=== PATIENT | female | born 1985 | race Two or more races ===

== ENCOUNTER 2016-04-15 01:43 | Emergency (ER) | payer MEDICAID ==
[~2016-04-15] VITALS: Ht 154.9 cm; Wt 76.2 kg
[~2016-04-15 01:43] MED LIST: DENIES TAKING MEDS
[2016-04-15] MEDS ORDERED: methylPREDNISolone SOD SUCC 125 MG/2 ML VL IV ONE (03:15)
[2016-04-15] MEDS ORDERED: diphenhdrAMINE HCL 50 MG/1 ML VL IV ONE (03:15)
[2016-04-15] MEDS ORDERED: cefTRIAXone 1GM/50ML D5W 50 ML IV ONE (03:15)
[2016-04-15] MEDS ORDERED: SODIUM CHLORIDE 0.9% 1,000 ML IV ONE (03:15)
[2016-04-15 04:54] VITALS: BP 138/90
== END 2016-04-15 05:19 | disposition home or self-care (01) ==
LOC: ER 01:46
DX: J02.9 Acute pharyngitis, unspecified (principal); N39.0 Urinary tract infection, site not specified; T78.40XA Allergy, unspecified, initial encounter; E86.0 Dehydration; M19.90 Unspecified osteoarthritis, unspecified site; R51 Headache; F15.10 Other stimulant abuse, uncomplicated; F17.210 Nicotine dependence, cigarettes, uncomplicated; Z88.1 Allergy status to other antibiotic agents
CPT/HCPCS: 81025; 96365; 96375; 99284; J0696; J1200; J2930; J7030

== ENCOUNTER 2016-12-01 06:52 | Emergency (ER) | payer MEDICAID ==
[~2016-12-01] VITALS: Ht 154.9 cm; Wt 74.8 kg
[2016-12-01 07:20] VITALS: BP 140/90
[2016-12-01] MEDS ORDERED: traMADol HCL 50 MG TAB PO ONE (08:00)
== END 2016-12-01 08:17 | disposition home or self-care (01) ==
LOC: ER 06:52
DX: J02.9 Acute pharyngitis, unspecified (principal); M19.90 Unspecified osteoarthritis, unspecified site; F17.210 Nicotine dependence, cigarettes, uncomplicated; Z88.8 Allergy status to other drugs, medicaments and biological substances

== ENCOUNTER 2017-05-13 03:54 | Emergency (ER) | payer MEDICAID ==
[~2017-05-13] VITALS: Ht 154.9 cm; Wt 77.1 kg
[2017-05-13 04:20] VITALS: BP 144/95
[2017-05-13 05:09] LABS: Urine Bacteria NONE SEEN /hpf (None Seen); Urine Blood 2+ /uL (Negative); Urine Mucus FEW (None Seen); Urine Specific Gravity 1.025 (1.001-1.035); Urine WBC 46 /hpf (0 - 5)
== END 2017-05-13 08:36 | disposition left against medical advice (07) ==
LOC: ER 03:54
DX: R31.9 Hematuria, unspecified (principal); Z53.21 Procedure and treatment not carried out due to patient leaving prior to being seen by health care provider
CPT/HCPCS: 81001; 81025

== ENCOUNTER 2017-05-25 18:44 | Emergency (ER) | payer MEDICAID ==
[~2017-05-25] VITALS: Ht 154.9 cm; Wt 74.8 kg
[2017-05-25 18:50] VITALS: BP 118/70
== END 2017-05-25 23:27 | disposition left against medical advice (07) ==
LOC: ER 18:44
DX: M79.89 Other specified soft tissue disorders (principal); Z53.21 Procedure and treatment not carried out due to patient leaving prior to being seen by health care provider

== ENCOUNTER 2017-05-27 04:59 | Inpatient (IN) | payer MEDICAID ==
[~2017-05-27] VITALS: Ht 154.9 cm; Wt 87.3 kg
[2017-05-27 06:28] LABS: Basophils # (auto) 0.1 uL; Basophils % (auto) 0.9 % (0.0-2.0); Eosinophils # (auto) 0.3 uL; Eosinophils % (auto) 3.7 % (0.0-7.0); Hematocrit 39.4 % (36.0-46.0); Hemoglobin 12.5 g/dL (12.2-16.2); Lymphocytes # (auto) 1.9 uL; Lymphocytes % (auto) 26.3 % (10.0-50.0); Mean Corpuscular Hgb Conc. 31.8 g/dL (32.0-36.0); Monocytes # (auto) 0.6 uL; Monocytes % (auto) 8.9 % (0.0-12.0); Neutrophils # (auto) 4.4 uL; Neutrophils % (auto) 60.2 % (37.0-80.0); Nucleated Red Blood Cells % 0.1 %; Platelet Count (auto) 333 10^3/uL (140-450); Red Blood Cells 4.47 10^6/uL (4.0-5.20); Red Cell Distribution Width 15.4 % (11.8-14.3); White Blood Cell 7.2 10^3/uL (4.4-10.8)
[2017-05-27 06:49] LABS: Albumin 3.4 g/dL (3.4-5.0); BUN/Creatinine Ratio 21.1; Calcium 8.3 mg/dL (8.5-10.1)
[2017-05-27 06:52] LABS: Bilirubin, Total 0.3 mg/dL (0.2-1.0); Total Protein 7.1 g/dL (6.4-8.2)
[2017-05-27] MEDS ORDERED: SODIUM CHLORIDE 0.9% 1,000 ML IV ONE (06:58)
[2017-05-27] MEDS ORDERED: CLINDAMYCIN 600MG IV 50 ML IV ONE (07:00)
[2017-05-27 08:11] LABS: Urine Bacteria FEW /hpf (None Seen); Urine Blood Negative /uL (Negative); Urine Mucus FEW (None Seen); Urine Specific Gravity 1.025 (1.001-1.035); Urine WBC 14 /hpf (0 - 5)
[2017-05-27] MEDS ORDERED: cefTRIAXone 1GM/10ml IVPUSH 10 ML IV ONE (10:00)
[2017-05-27] MEDS ORDERED: ACETAMINOPHEN 325 MG TAB PO PRN (10:30)
[2017-05-27] MEDS ORDERED: ONDANSETRON HCL 4 MG/2 ML VIAL IV PRN (10:30)
[2017-05-27] MEDS ORDERED: HYDROcodone-ACET 5/325MG TAB PO PRN (10:30)
[2017-05-27] MEDS ORDERED: MORPHINE SULFATE 8mg/ml INJ SDV IV PRN (10:30)
[2017-05-27] MEDS ORDERED: DOCUSATE SOD 100 MG CAP PO PRN (10:30)
[2017-05-27] MEDS ORDERED: TEMAZEPAM 15 MG CAP PO PRN (10:30)
[2017-05-27] MEDS ORDERED: MULTIPLE VITAMIN TAB PO ONE (10:45)
[2017-05-27] MEDS ORDERED: ZINC SULFATE 220 MG CAP PO ONE (10:45)
[2017-05-27] MEDS ORDERED: ASCORBIC ACID 500 MG TAB PO ONE (10:45)
[2017-05-27 10:52] LABS: Alcohol, Urine < 3.0 mg/dL (0-5); Amphetamine Screen, Urine POSITIVE (NEGATIVE); Barbiturate Scree,Urine NEGATIVE (NEGATIVE); Benzodiazephine Screen, Urine NEGATIVE (NEGATIVE); Cannabinoid Screen, Urine NEGATIVE (NEGATIVE); Cocaine Screen, Urine NEGATIVE (NEGATIVE); Opiate Scree,Urine NEGATIVE (NEGATIVE); Phencyclidine Screen, Urine NEGATIVE (NEGATIVE)
[2017-05-27 13:00] VITALS: BP 127/81
[2017-05-27 14:36] VITALS: BP 127/81
[2017-05-27 16:43] VITALS: BP 139/78
[2017-05-27] MEDS: CLINDAMYCIN 300MG IV 50 ML IV SCH ×2 (17:12→21:27)
[2017-05-27] MEDS: SODIUM CHLOR 0.9% PF (SALINE LOCK) 10ML VIAL/SYR IV SCH ×2 (17:12→21:26)
[2017-05-27] MEDS: ASCORBIC ACID 500 MG TAB PO SCH (21:26)
[2017-05-27 22:00] VITALS: BP 133/76
[2017-05-28 05:00] VITALS: BP 136/78
[2017-05-28] MEDS: CLINDAMYCIN 300MG IV 50 ML IV SCH (05:31)
[2017-05-28] MEDS: SODIUM CHLOR 0.9% PF (SALINE LOCK) 10ML VIAL/SYR IV SCH ×3 (05:32→22:03)
[2017-05-28 07:42] LABS: Albumin 3.1 g/dL (3.4-5.0); BUN/Creatinine Ratio 11.6; Bilirubin, Total 0.3 mg/dL (0.2-1.0); Calcium 8.1 mg/dL (8.5-10.1); Potassium 4.1 mmol/L (3.5-5.1); Total Protein 6.7 g/dL (6.4-8.2)
[2017-05-28 08:02] LABS: Basophils # (auto) 0 uL; Basophils % (auto) 0.7 % (0.0-2.0); Eosinophils # (auto) 0.3 uL; Eosinophils % (auto) 4.8 % (0.0-7.0); Hematocrit 38.2 % (36.0-46.0); Hemoglobin 12.4 g/dL (12.2-16.2); Lymphocytes # (auto) 2.1 uL; Lymphocytes % (auto) 39.8 % (10.0-50.0); Mean Corpuscular Hemoglobin 28.5 pg (28.0-32.0); Mean Corpuscular Hgb Conc. 32.5 g/dL (32.0-36.0); Mean Corpuscular Volume 87.6 fL (80.0-100.0); Monocytes # (auto) 0.6 uL; Monocytes % (auto) 10.6 % (0.0-12.0); Neutrophils # (auto) 2.3 uL; Neutrophils % (auto) 44.1 % (37.0-80.0); Nucleated Red Blood Cells % 0.1 %; Platelet Count (auto) 320 10^3/uL (140-450); Red Blood Cells 4.36 10^6/uL (4.0-5.20); Red Cell Distribution Width 15.2 % (11.8-14.3); White Blood Cell 5.3 10^3/uL (4.4-10.8)
[2017-05-28 09:00] VITALS: BP 121/78
[2017-05-28] MEDS ORDERED: ZINC SULFATE 220 MG CAP PO SCH (10:00)
[2017-05-28] MEDS ORDERED: MULTIPLE VITAMIN TAB PO SCH (10:00)
[2017-05-28] MEDS: cefTRIAXone 1GM/10ml IVPUSH 10 ML IV SCH (10:09)
[2017-05-28] MEDS: ASCORBIC ACID 500 MG TAB PO SCH (10:09)
[2017-05-28] MEDS ORDERED: VANCOMYCIN PER PHARMACY 0 MG IV SCH (12:45)
[2017-05-28 13:00] VITALS: BP 132/89
[2017-05-28] MEDS ORDERED: VANCOMYCIN 750 MG in D5W 5% 250 ML IV SCH (13:00)
[2017-05-28] MEDS: VANCOMYCIN 750 MG in SODIUM CHL 0.9% 250 ML IV SCH (13:03)
[2017-05-28 17:33] VITALS: BP 153/90
[2017-05-28 22:00] VITALS: BP 147/85
[2017-05-28] MEDS ORDERED: VANCOMYCIN 1GM/250ML 250 ML IV SCH (22:00)
[2017-05-29] MEDS: VANCOMYCIN 750 MG in SODIUM CHL 0.9% 250 ML IV SCH ×2 (01:01→12:25)
[2017-05-29 05:11] VITALS: BP 131/86
[2017-05-29] MEDS: SODIUM CHLOR 0.9% PF (SALINE LOCK) 10ML VIAL/SYR IV SCH ×2 (05:54→12:24)
[2017-05-29 07:29] LABS: BUN/Creatinine Ratio 14.9; Calcium 7.9 mg/dL (8.5-10.1)
[2017-05-29] MEDS: cefTRIAXone 1GM/10ml IVPUSH 10 ML IV SCH (08:53)
[2017-05-29 09:00] VITALS: BP 121/78
[2017-05-29 12:30] VITALS: BP 122/74
[2017-05-29] MEDS ORDERED: IBUP800T24 PO (12:50)
[2017-05-29] MEDS ORDERED: DOXY-216 PO (12:50)
[2017-05-29] MEDS ORDERED: CEPH-37 PO (12:50)
[2017-05-29 16:57] VITALS: BP 148/85
== END 2017-05-29 17:48 | disposition home or self-care (01) | DRG 383 ==
LOC: ER 04:59 → OVERFLOW 05:00 → CENTRAL 13:05
PROVIDERS: ADMIT Internal Medicine; ATTEND Hospitalist
DX: L03.115 Cellulitis of right lower limb (principal); E83.51 Hypocalcemia; N39.0 Urinary tract infection, site not specified; F17.210 Nicotine dependence, cigarettes, uncomplicated; I34.1 Nonrheumatic mitral (valve) prolapse; M06.9 Rheumatoid arthritis, unspecified; F15.10 Other stimulant abuse, uncomplicated; T43.625A Adverse effect of amphetamines, initial encounter; F32.9 Major depressive disorder, single episode, unspecified; M19.90 Unspecified osteoarthritis, unspecified site; Z88.8 Allergy status to other drugs, medicaments and biological substances; Z82.49 Family history of ischemic heart disease and other diseases of the circulatory system; Z82.61 Family history of arthritis; Z71.51 Drug abuse counseling and surveillance of drug abuser; Y92.89 Other specified places as the place of occurrence of the external cause
CPT/HCPCS: 36415; 73630; 80048; 80053; 80307; 81001; 81025; 83605; 85025; 85652; 87040; 87086; 93306; 94761; 96361; 96365; 96375; J3490; J7060

== ENCOUNTER 2017-11-09 22:23 | Inpatient (IN) | payer MEDICAID ==
[~2017-11-09] VITALS: Ht 154.9 cm; Wt 79.0 kg
[~2017-11-09 22:23] MED LIST changes: +CEPH-37 PO; +DOXY-216 PO; +IBUP800T24 PO
[2017-11-10 00:25] LABS: Basophils # (auto) 0 uL; Basophils % (auto) 0.4 % (0.0-2.0); Eosinophils # (auto) 0.5 uL; Eosinophils % (auto) 4.5 % (0.0-7.0); Hematocrit 43.6 % (36.0-46.0); Hemoglobin 14.5 g/dL (12.2-16.2); Lymphocytes # (auto) 2.1 uL; Lymphocytes % (auto) 20.2 % (10.0-50.0); Mean Corpuscular Hemoglobin 30.9 pg (28.0-32.0); Mean Corpuscular Hgb Conc. 33.2 g/dL (32.0-36.0); Mean Corpuscular Volume 93.3 fL (80.0-100.0); Monocytes # (auto) 0.9 uL; Monocytes % (auto) 8.9 % (0.0-12.0); Nucleated Red Blood Cells % 0.1 %; Platelet Count (auto) 338 10^3/uL (140-450); Red Blood Cells 4.67 10^6/uL (4.0-5.20); Red Cell Distribution Width 13.8 % (11.8-14.3); White Blood Cell 10.5 10^3/uL (4.4-10.8)
[2017-11-10 00:36] LABS: Albumin 3.7 g/dL (3.4-5.0); BUN/Creatinine Ratio 11.1; Calcium 8.1 mg/dL (8.5-10.1); Potassium 3.7 mmol/L (3.5-5.1)
[2017-11-10 00:38] LABS: Lactic Acid w/Reflex 2.4 mmol/L (0.4-2.0)
[2017-11-10 00:39] LABS: Bilirubin, Total 0.4 mg/dL (0.2-1.0); Total Protein 7.8 g/dL (6.4-8.2)
[2017-11-10] MEDS ORDERED: cefTRIAXone 1GM/10ml IVPUSH 10 ML IV ONE (01:45)
[2017-11-10] MEDS ORDERED: VANCOMYCIN 1GM/250ML 250 ML IV ONE (01:45)
[2017-11-10] MEDS ORDERED: ONDANSETRON HCL 4 MG/2 ML VIAL IV PRN (04:30)
[2017-11-10] MEDS ORDERED: HYDROcodone-ACET 5/325MG TAB PO PRN (04:30)
[2017-11-10] MEDS ORDERED: MORPHINE SULFATE 4 MG/ML SYR/VIAL IV PRN (04:30)
[2017-11-10] MEDS ORDERED: ACETAMINOPHEN 500 MG TAB PO PRN (04:30)
[2017-11-10] MEDS: SODIUM CHLORIDE 0.9% 1,000 ML IV SCH ×2 (04:38→17:50)
[2017-11-10 05:32] VITALS: BP 153/99
[2017-11-10 07:07] LABS: Basophils # (auto) 0.1 uL; Basophils % (auto) 0.9 % (0.0-2.0); Eosinophils # (auto) 0.5 uL; Eosinophils % (auto) 5.2 % (0.0-7.0); Hematocrit 41.6 % (36.0-46.0); Hemoglobin 13.9 g/dL (12.2-16.2); Lymphocytes # (auto) 1.8 uL; Lymphocytes % (auto) 20.1 % (10.0-50.0); Mean Corpuscular Hemoglobin 31.2 pg (28.0-32.0); Mean Corpuscular Hgb Conc. 33.4 g/dL (32.0-36.0); Mean Corpuscular Volume 93.4 fL (80.0-100.0); Monocytes # (auto) 0.7 uL; Monocytes % (auto) 7.8 % (0.0-12.0); Platelet Count (auto) 277 10^3/uL (140-450); Red Blood Cells 4.45 10^6/uL (4.0-5.20); Red Cell Distribution Width 13.6 % (11.8-14.3)
[2017-11-10 07:28] LABS: BUN/Creatinine Ratio 10.4; Calcium 8.1 mg/dL (8.5-10.1); Potassium 3.5 mmol/L (3.5-5.1)
[2017-11-10 07:49] VITALS: BP 137/87
[2017-11-10 12:11] VITALS: BP 129/78
[2017-11-10] MEDS ORDERED: VANCOMYCIN PER PHARMACY 0 MG IV SCH (13:00)
[2017-11-10] MEDS ORDERED: cloNIDine HCL 0.1 MG TAB PO PRN (13:00)
[2017-11-10] MEDS ORDERED: VANCOMYCIN 1GM/250ML 250 ML IV SCH (14:00)
[2017-11-10 17:10] VITALS: BP 120/69
[2017-11-10] MEDS ORDERED: cefTRIAXone 1GM/10ml IVPUSH 10 ML IV SCH (22:00)
[2017-11-11] MEDS ORDERED: cefTRIAXone 1GM/10ml IVPUSH 10 ML IV SCH (09:00)
== END 2017-11-10 21:00 | disposition left against medical advice (07) | DRG 383 ==
LOC: ER 22:25 → OVERFLOW 22:26 → CENTRAL 11-10 05:05
PROVIDERS: ADMIT Nurse Practitioner Family; ATTEND Hospitalist
DX: L03.116 Cellulitis of left lower limb (principal); F15.10 Other stimulant abuse, uncomplicated; F17.210 Nicotine dependence, cigarettes, uncomplicated; F32.9 Major depressive disorder, single episode, unspecified; Z53.21 Procedure and treatment not carried out due to patient leaving prior to being seen by health care provider; M19.90 Unspecified osteoarthritis, unspecified site; R00.0 Tachycardia, unspecified; Z81.8 Family history of other mental and behavioral disorders
CPT/HCPCS: 36415; 73700; 80048; 80053; 81025; 83605; 85025; 87040; 87081; 87205; 93970; 96365; 96375; J0696

== ENCOUNTER 2018-03-24 14:01 | Emergency (ER) | payer MEDICAID ==
[~2018-03-24] VITALS: Ht 154.9 cm; Wt 77.1 kg
[2018-03-24] MEDS ORDERED: HYDROcodone-ACET 10/325MG TAB PO ONE (18:45)
[2018-03-24] MEDS ORDERED: ONDANSETRON ODT 4 MG TAB PO ONE (18:45)
[2018-03-24 23:08] VITALS: BP 127/77
== END 2018-03-24 23:25 | disposition home or self-care (01) ==
LOC: EDBD 14:01 → ER 14:01
DX: S82.141A Displaced bicondylar fracture of right tibia, initial encounter for closed fracture (principal); S83.241A Other tear of medial meniscus, current injury, right knee, initial encounter; S53.491A Other sprain of right elbow, initial encounter; M19.90 Unspecified osteoarthritis, unspecified site; V00.831A Fall from motorized mobility scooter, initial encounter; Y93.89 Activity, other specified; Y99.8 Other external cause status; Y92.89 Other specified places as the place of occurrence of the external cause
CPT/HCPCS: 29505; 70450; 71250; 72125; 73562; 73700; 74176; 99284; Q0162

== ENCOUNTER 2018-08-03 05:39 | Emergency (ER) | payer MEDICAID ==
[~2018-08-03] VITALS: Ht 154.9 cm; Wt 77.1 kg
[2018-08-03 08:29] VITALS: BP 149/77
[2018-08-03 08:34] LABS: Alanine Aminotransferase 32 U/L (13-56); Albumin 4.1 g/dL (3.4-5.0); Anion Gap 6 (5-15); Aspartate Aminotransferase 20 U/L (15-37); BUN/Creatinine Ratio 20.9; Blood Urea Nitrogen 18 mg/dL (7-18); Calcium 8.6 mg/dL (8.5-10.1); Carbon Dioxide 26 mmol/L (21-32); Chloride 108 mmol/L (98-107); GFR African American 97 mL/min; GFR Non-African American 80 mL/min; Glucose 105 mg/dL (74-106); Potassium 3.9 mmol/L (3.5-5.1); Sodium 140 mmol/L (136-145)
[2018-08-03 08:38] LABS: Urine Pregnacy Test Negative (Negative)
[2018-08-03 08:39] LABS: Alkaline Phosphatase 87 U/L (45-117); Bilirubin, Total 0.6 mg/dL (0.2-1.0); Total Protein 7.3 g/dL (6.4-8.2)
[2018-08-03 08:45] LABS: Basophils # (auto) 0 uL; Basophils % (auto) 0.6 % (0.0-2.0); Eosinophils # (auto) 0.1 uL; Hematocrit 43.1 % (36.0-46.0); Hemoglobin 14.5 g/dL (12.2-16.2); Lymphocytes % (auto) 30.1 % (10.0-50.0); Mean Corpuscular Hemoglobin 31.6 pg (28.0-32.0); Mean Corpuscular Hgb Conc. 33.6 g/dL (32.0-36.0); Mean Corpuscular Volume 94.1 fL (80.0-100.0); Monocytes # (auto) 0.6 uL; Monocytes % (auto) 9.4 % (0.0-12.0); Neutrophils # (auto) 3.9 uL; Neutrophils % (auto) 57.9 % (37.0-80.0); Nucleated Red Blood Cells % 0.1 %; Platelet Count (auto) 286 10^3/uL (140-450); Red Blood Cells 4.58 10^6/uL (4.0-5.20); Red Cell Distribution Width 13.7 % (11.8-14.3); White Blood Cell 6.7 10^3/uL (4.4-10.8)
[2018-08-03 08:47] LABS: INR 0.97 (0.9-1.15); Partial Thromboplastin Time 29.1 sec (23.64-32.05)
[2018-08-03 08:49] LABS: Alcohol, Urine < 3.0 mg/dL (0-5); Amphetamine Screen, Urine POSITIVE (NEGATIVE); Barbiturate Scree,Urine NEGATIVE (NEGATIVE); Benzodiazephine Screen, Urine NEGATIVE (NEGATIVE); Cannabinoid Screen, Urine NEGATIVE (NEGATIVE); Cocaine Screen, Urine NEGATIVE (NEGATIVE); Opiate Scree,Urine NEGATIVE (NEGATIVE); Phencyclidine Screen, Urine NEGATIVE (NEGATIVE)
[2018-08-03 10:57] LABS: Urine Amorphous Crystal FEW /hpf (None Seen); Urine Bacteria MOD /hpf (None Seen); Urine Blood 2+ /uL (Negative); Urine Mucus FEW (None Seen); Urine Specific Gravity 1.028 (1.001-1.035); Urine WBC 79 /hpf (0 - 5)
== END 2018-08-03 09:19 | disposition left against medical advice (07) ==
LOC: ER 05:39
DX: R07.89 Other chest pain (principal); N39.0 Urinary tract infection, site not specified; F15.10 Other stimulant abuse, uncomplicated; M06.9 Rheumatoid arthritis, unspecified; F17.210 Nicotine dependence, cigarettes, uncomplicated; Z88.8 Allergy status to other drugs, medicaments and biological substances; Z32.02 Encounter for pregnancy test, result negative
CPT/HCPCS: 36415; 71045; 80053; 80307; 81001; 81025; 83880; 84484; 85025; 85610; 85730; 93005

== ENCOUNTER 2020-09-12 17:44 | Emergency (ER) | payer MEDICAID ==
[~2020-09-12] VITALS: Ht 154.9 cm; Wt 77.1 kg
[~2020-09-12 17:44] MED LIST changes: -DOXY-216 PO; +DOXY-286 PO; -IBUP800T24 PO; +IBUP800T27 PO
[2020-09-12 20:50] LABS: Urine Bacteria NONE SEEN /hpf (None Seen); Urine Blood Negative /uL (Negative); Urine Hyaline Cast FEW /lpf (0 - 2); Urine Mucus FEW (None Seen); Urine Specific Gravity 1.029 (1.001-1.035); Urine WBC 2 /hpf (0 - 5)
[2020-09-12 21:08] LABS: Amphetamine Screen, Urine POSITIVE (NEGATIVE); Barbiturate Scree,Urine NEGATIVE (NEGATIVE); Benzodiazephine Screen, Urine NEGATIVE (NEGATIVE); Cannabinoid Screen, Urine NEGATIVE (NEGATIVE); Cocaine Screen, Urine NEGATIVE (NEGATIVE); Opiate Scree,Urine NEGATIVE (NEGATIVE); Phencyclidine Screen, Urine NEGATIVE (NEGATIVE)
[2020-09-12] MEDS ORDERED: SODIUM CHLORIDE 0.9% 1,000 ML IV ONE (21:15)
[2020-09-12 22:15] LABS: Basophils # (auto) 0.1 10 ^3/uL (0-0.2); Basophils % (auto) 0.8 % (0.0-2.0); Eosinophils # (auto) 0.3 10 ^3/uL (0-0.8); Eosinophils % (auto) 4.2 % (0.0-7.0); Hematocrit 41.5 % (36.0-46.0); Hemoglobin 14.6 g/dL (12.2-16.2); Lymphocytes % (auto) 37.9 % (10.0-50.0); Mean Corpuscular Hemoglobin 33.3 pg (28.0-32.0); Mean Corpuscular Hgb Conc. 35.3 g/dL (32.0-36.0); Mean Corpuscular Volume 94.4 fL (80.0-100.0); Monocytes # (auto) 0.7 10 ^3/uL (0-1.3); Monocytes % (auto) 8.7 % (0.0-12.0); Neutrophils # (auto) 3.9 10 ^3/uL (1.6-8.6); Neutrophils % (auto) 48.4 % (37.0-80.0); Red Cell Distribution Width 12.8 % (11.8-14.3)
[2020-09-12 22:27] LABS: Acetaminophen < 2.0 ug/mL (10-30)
[2020-09-12] MEDS ORDERED: LIDOCAINE 1% HCL (LOCAL ANESTH.) INJ 20ML MDV ONE (22:39)
[2020-09-12] MEDS ORDERED: LIDOCAINE 1% HCL (LOCAL ANESTH.) INJ 20ML MDV ID ONE (22:45)
[2020-09-12 23:43] LABS: Albumin 3.6 g/dL (3.4-5.0); Calcium 8.4 mg/dL (8.5-10.1); Magnesium 2.1 mg/dL (1.6-2.6); Potassium 4.2 mmol/L (3.5-5.1)
[2020-09-12 23:47] LABS: BUN/Creatinine Ratio 15.7; Bilirubin, Total 0.4 mg/dL (0.2-1.0); Total Protein 6.8 g/dL (6.4-8.2)
[2020-09-13 03:00] VITALS: BP 142/88
== END 2020-09-13 05:21 | disposition left against medical advice (07) ==
LOC: ER 17:44 → EDBD 17:44 → ER 09-13 05:21
DX: S51.811A Laceration without foreign body of right forearm, initial encounter (principal); F15.10 Other stimulant abuse, uncomplicated; F10.10 Alcohol abuse, uncomplicated; M54.2 Cervicalgia; M25.571 Pain in right ankle and joints of right foot; F17.210 Nicotine dependence, cigarettes, uncomplicated; X83.8XXA Intentional self-harm by other specified means, initial encounter; Y93.89 Activity, other specified; Y92.89 Other specified places as the place of occurrence of the external cause; Y99.8 Other external cause status; Y90.1 Blood alcohol level of 20-39 mg/100 ml
CPT/HCPCS: 36415; 70450; 71045; 72125; 80053; 80307; 80320; 80329; 81001; 81025; 83735; 85025; 96360; 99285; J2001; J7030

== ENCOUNTER 2021-12-06 14:40 | Inpatient (IN) | payer MEDICAID ==
[~2021-12-06] VITALS: Ht 154.9 cm; Wt 84.0 kg
[2021-12-06] MEDS ORDERED: SODIUM CHLORIDE 0.9% 1,000 ML IVB ONE (15:00)
[2021-12-06] MEDS ORDERED: SODIUM CHLORIDE 0.9% 1,000 ML IV ONE (15:00)
[2021-12-06] MEDS ORDERED: NALOXONE HCL 1MG/ML 2ML SYRINGE IV ONE (15:00)
[2021-12-06 15:26] LABS: Basophils # (auto) 0.1 10 ^3/uL (0-0.2); Basophils % (auto) 0.9 % (0.0-2.0); Eosinophils # (auto) 0.3 10 ^3/uL (0-0.8); Eosinophils % (auto) 3.7 % (0.0-7.0); Hematocrit 41.8 % (36.0-46.0); Hemoglobin 14.4 g/dL (12.2-16.2); Lymphocytes # (auto) 3.6 10 ^3/uL (0.4-5.4); Lymphocytes % (auto) 42.4 % (10.0-50.0); Mean Corpuscular Hemoglobin 31.6 pg (28.0-32.0); Mean Corpuscular Hgb Conc. 34.4 g/dL (32.0-36.0); Mean Corpuscular Volume 91.9 fL (80.0-100.0); Monocytes # (auto) 0.7 10 ^3/uL (0-1.3); Monocytes % (auto) 8.1 % (0.0-12.0); Neutrophils # (auto) 3.8 10 ^3/uL (1.6-8.6); Neutrophils % (auto) 44.9 % (37.0-80.0); Nucleated Red Blood Cells % 0.1 %; Red Blood Cells 4.55 10^6/uL (4.0-5.20); Red Cell Distribution Width 12.8 % (11.8-14.3); White Blood Cell 8.5 10^3/uL (4.4-10.8)
[2021-12-06 16:02] LABS: Albumin 3.6 g/dL (3.4-5.0); Anion Gap 8 (5-15); Blood Alcohol < 3.0 mg/dL (0-5); Blood Urea Nitrogen 19 mg/dL (7-18); Calcium 8.7 mg/dL (8.5-10.1); Carbon Dioxide 25 mmol/L (21-32); Chloride 109 mmol/L (98-107); Glucose 185 mg/dL (74-106); Potassium 4.5 mmol/L (3.5-5.1); Sodium 142 mmol/L (136-145)
[2021-12-06 16:06] LABS: Alanine Aminotransferase 46 U/L (13-56); Alkaline Phosphatase 94 U/L (45-117); Aspartate Aminotransferase 35 U/L (15-37); BUN/Creatinine Ratio 20.4; Bilirubin, Total 0.4 mg/dL (0.2-1.0); GFR African American 87 mL/min; GFR Non-African American 72 mL/min; Total Protein 6.8 g/dL (6.4-8.2)
[2021-12-06] MEDS ORDERED: ENOXAPARIN SOD 80 MG/0.8ML SYRINGE SC ONE (17:30)
[2021-12-06] MEDS ORDERED: DEXTROSE (50%) 50ML SYRG IV PRN (20:45)
[2021-12-06] MEDS ORDERED: HYDROcodone-ACET 5/325MG TAB PO PRN (20:45)
[2021-12-06] MEDS ORDERED: ACETAMINOPHEN 325 MG TAB PO PRN (20:45)
[2021-12-06] MEDS ORDERED: DOCUSATE SOD 100 MG CAP PO PRN (20:45)
[2021-12-06] MEDS ORDERED: ONDANSETRON HCL 4 MG/2 ML VIAL IV PRN (20:45)
[2021-12-06] MEDS: InsuLIN REG 1unit/0.01ml Soln (100units/ml) SC SCH (22:00)
[2021-12-06] MEDS: ACCU-CHEK COMFORT CURVE STRIP VI SCH (22:00)
[2021-12-06] MEDS ORDERED: MORPHINE SULFATE INJ 2 MG/ml SYRG IV PRN (23:00)
[2021-12-06] MEDS ORDERED: NITROGLYCERIN 0.4 MG SL TAB SL PRN (23:00)
[2021-12-07 03:26] VITALS: BP 140/95
[2021-12-07 05:00] VITALS: BP 157/102
[2021-12-07] MEDS: SODIUM CHLOR 0.9% PF (SALINE LOCK) 10ML VIAL/SYR IV SCH ×2 (06:17→06:18)
[2021-12-07] MEDS: ACCU-CHEK COMFORT CURVE STRIP VI SCH ×2 (06:18→12:57)
[2021-12-07] MEDS: InsuLIN REG 1unit/0.01ml Soln (100units/ml) SC SCH ×2 (06:23→13:02)
[2021-12-07 09:06] VITALS: BP 181/111
[2021-12-07 09:21] LABS: Basophils # (auto) 0.1 10 ^3/uL (0-0.2); Basophils % (auto) 0.8 % (0.0-2.0); Eosinophils # (auto) 0.3 10 ^3/uL (0-0.8); Eosinophils % (auto) 4.1 % (0.0-7.0); Hematocrit 43.4 % (36.0-46.0); Hemoglobin 14.6 g/dL (12.2-16.2); Lymphocytes # (auto) 2.5 10 ^3/uL (0.4-5.4); Lymphocytes % (auto) 30.4 % (10.0-50.0); Mean Corpuscular Hemoglobin 31.4 pg (28.0-32.0); Mean Corpuscular Hgb Conc. 33.8 g/dL (32.0-36.0); Mean Corpuscular Volume 92.9 fL (80.0-100.0); Monocytes # (auto) 0.7 10 ^3/uL (0-1.3); Monocytes % (auto) 8.9 % (0.0-12.0); Neutrophils # (auto) 4.5 10 ^3/uL (1.6-8.6); Neutrophils % (auto) 55.8 % (37.0-80.0); Nucleated Red Blood Cells % 0.2 %; Red Blood Cells 4.67 10^6/uL (4.0-5.20); Red Cell Distribution Width 12.5 % (11.8-14.3); White Blood Cell 8.1 10^3/uL (4.4-10.8)
[2021-12-07 09:38] LABS: Albumin 3.2 g/dL (3.4-5.0); Calcium 8.2 mg/dL (8.5-10.1); Potassium 4.8 mmol/L (3.5-5.1)
[2021-12-07 09:42] LABS: BUN/Creatinine Ratio 19.4; Bilirubin, Total 0.4 mg/dL (0.2-1.0); Total Protein 6.3 g/dL (6.4-8.2)
[2021-12-07 09:43] VITALS: BP 149/100
[2021-12-07] MEDS ORDERED: ENOXAPARIN SOD 40 MG/0.4 ML SYRINGE SC SCH (10:00)
[2021-12-07] MEDS ORDERED: HYDR25TA5 PO (13:09)
[2021-12-07 13:17] VITALS: BP 150/104
== END 2021-12-07 13:45 | disposition home or self-care (01) | DRG 52 ==
LOC: ER 14:40 → TELE 23:00 → TELE-WESTW 12-07 02:03
PROVIDERS: ADMIT Nurse Practitioner Family; ATTEND Nurse Practitioner Family
DX: G92.8 Other toxic encephalopathy (principal); F12.90 Cannabis use, unspecified, uncomplicated; F15.90 Other stimulant use, unspecified, uncomplicated; F17.210 Nicotine dependence, cigarettes, uncomplicated; F32.A Depression, unspecified; Z20.822 Contact with and (suspected) exposure to COVID-19; R73.9 Hyperglycemia, unspecified; Z83.3 Family history of diabetes mellitus; Z81.8 Family history of other mental and behavioral disorders; Z82.49 Family history of ischemic heart disease and other diseases of the circulatory system; Z88.8 Allergy status to other drugs, medicaments and biological substances
CPT/HCPCS: 36415; 70450; 71045; 80053; 80320; 82962; 83036; 83605; 84484; 85025; 87040; 87426; 96361; 96374; G0378; J1815

== ENCOUNTER → 2022-01-19 | Outpatient (CLI) | payer MEDICAID ==
[~2022-01-19] MED LIST changes: -CEPH-37 PO; -DOXY-286 PO; +HYDR25TA5 PO; -IBUP800T27 PO
[2022-01-19 10:17] LABS: Basophils # (auto) 0 10 ^3/uL (0-0.2); Basophils % (auto) 0.7 % (0.0-2.0); Eosinophils # (auto) 0.2 10 ^3/uL (0-0.8); Eosinophils % (auto) 3.3 % (0.0-7.0); Hemoglobin 15.7 g/dL (12.2-16.2); Lymphocytes # (auto) 2.2 10 ^3/uL (0.4-5.4); Mean Corpuscular Hemoglobin 31.4 pg (28.0-32.0); Mean Corpuscular Hgb Conc. 34.1 g/dL (32.0-36.0); Monocytes # (auto) 0.6 10 ^3/uL (0-1.3); Monocytes % (auto) 9.7 % (0.0-12.0); Neutrophils # (auto) 3.3 10 ^3/uL (1.6-8.6); Neutrophils % (auto) 51.3 % (37.0-80.0); Nucleated Red Blood Cells % 0.1 %; Red Cell Distribution Width 12.3 % (11.8-14.3); White Blood Cell 6.4 10^3/uL (4.4-10.8)
[2022-01-19 10:30] LABS: Calcium 9.1 mg/dL (8.5-10.1); Potassium 3.8 mmol/L (3.5-5.1)
[2022-01-19 10:36] LABS: BUN/Creatinine Ratio 22.8; Bilirubin, Total 0.7 mg/dL (0.2-1.0); Total Protein 7.8 g/dL (6.4-8.2)
== END | disposition home or self-care (01) ==
LOC: LAB 09:26
PROVIDERS: ATTEND Nurse Practitioner Family
DX: Z00.00 Encounter for general adult medical examination without abnormal findings (principal); E11.9 Type 2 diabetes mellitus without complications; Z20.5 Contact with and (suspected) exposure to viral hepatitis
CPT/HCPCS: 36415; 80053; 80061; 82043; 83036; 84439; 84443; 85025; 86803

== ENCOUNTER 2022-03-21 22:34 | Emergency (ER) | payer MEDICAID ==
[~2022-03-21] VITALS: Ht 154.9 cm; Wt 80.0 kg
[2022-03-21 23:32] VITALS: BP 156/97
== END 2022-03-22 03:16 | disposition left against medical advice (07) ==
LOC: ER 22:34
DX: R06.02 Shortness of breath (principal); Z53.21 Procedure and treatment not carried out due to patient leaving prior to being seen by health care provider
CPT/HCPCS: 71045

== ENCOUNTER 2023-02-05 03:58 | Emergency (ER) | payer MEDICAID ==
[~2023-02-05] VITALS: Ht 154.9 cm; Wt 85.2 kg
[2023-02-05 04:42] VITALS: BP 134/88; PULSE 114; RESP 18; TEMP 98.6; O2SAT 98
[2023-02-05] MEDS ORDERED: AZIT500T66 PO (06:54)
[2023-02-05] MEDS ORDERED: PROM1SOL4 PO (06:54)
[2023-02-05] MEDS ORDERED: ALBU108A5 IN (06:54)
== END 2023-02-05 07:17 | disposition home or self-care (01) ==
LOC: ER 03:58
DX: J20.9 Acute bronchitis, unspecified (principal); F32.9 Major depressive disorder, single episode, unspecified; M19.90 Unspecified osteoarthritis, unspecified site; F17.210 Nicotine dependence, cigarettes, uncomplicated; F15.90 Other stimulant use, unspecified, uncomplicated; Z86.2 Personal history of diseases of the blood and blood-forming organs and certain disorders involving the immune mechanism
CPT/HCPCS: 71045

== ENCOUNTER 2024-07-11 02:19 | Emergency (ER) | payer MEDICAID ==
[~2024-07-11] VITALS: Ht 154.9 cm; Wt 84.1 kg
[~2024-07-11 02:19] MED LIST changes: +ALBU108A5 IN; +AZIT500T66 PO; +PROM1SOL4 PO
[2024-07-11 02:50] VITALS: BP 146/99; PULSE 109; RESP 18; TEMP 98.4; O2SAT 96
[2024-07-11] MEDS ORDERED: AMOX875T4 PO (02:55)
[2024-07-11] MEDS ORDERED: PRED20TA2 PO (02:55)
[2024-07-11] MEDS ORDERED: ACET500T58 PO (02:55)
--- NOTE | 2024-07-11 02:55 | ED.PDOC ---
Eye-HPI HPI Comments 39-YEAR-OLD FEMALE PRESENTS TO ER WITH COMPLAINTS OF SORE THROAT X3 DAYS. PATIENT REPORTS THAT SHE HAS BEEN EXPERIENCING SORE THROAT AND LEFT-SIDED EARACHE PAIN X3 DAYS. SHE RATES HER CURRENT PAIN A /. NOTES THAT SHE HAS BEEN TAKING IBUPROFEN FOR HER PAIN WITH SLIGHT RELIEF. PATIENT PRESENTS TO ER AMBULATORY ON ARRIVAL, WITH STEADY GAIT, IN NO DISTRESS AND NOTES SHE IS ABLE TO SWALLOW LIQUIDS/SOLIDS BUT DOES HAVE PAIN TO THROAT UPON DOING SO. DENIES COUGH, FEVER, BODY ACHES, CHILLS, CHEST PAIN, SHORTNESS OF BREATH OR ANY FURTHER SYMPTOMS/COMPLAINTS Chief Complaint: Sore Throat Time Seen by MD: 02:22 Primary Care Provider: Jason Reviewed Notes: Nurses Notes, Medications, Allergies Allergies: Coded Allergies: Ranitidine (Verified Allergy, Unknown, 05/31/13) Home Meds Active Scripts Prednisone (Prednisone) 20 Mg Tab, 20 MG PO BID for 5 Days, #10 TAB 0 Refills Prov:ALEXANDER TAPIA 07/11/24 Acetaminophen (Acetaminophen) 500 Mg Tab, 500 MG PO Q4HPRN, #30 TAB 0 Refills Prov:ALEXANDER TAPIA 07/11/24 Amoxicillin & Pot Clavulanate (Amoxicillin/Potassium Cla) 875 Mg Tab, 1 TAB PO BID for 7 Days, #14 TAB 0 Refills Prov:ALEXANDER TAPIA 07/11/24 Albuterol Sulfate (Albuterol Sulfate Hfa) 108 Mcg/Act Aer, 108 MCG IN TID, #90 AER Prov:GEORGIANA BUENROSTRO 02/05/23 Promethazine-Dm (Promethazine Dm 6.25-15 mg/5Ml) 1 Sharon Sharon, 5 ML PO TID, #180 ML Prov:GEORGIANA BUENROSTRO 02/05/23 Azithromycin (Azithromycin) 500 Mg Tab, 1 TAB PO DAILY, #5 TAB Prov:GEORGIANA BUENROSTRO 02/05/23 Hctz (Hydrochlorothiazide) 25 Mg Tab, 25 MG PO DAILY, #30 TAB Prov:BETITO MARTINEZ MD 12/07/21 Reported Medications [Denies Taking Meds] No Conflict Check 06/16/12 Information Source: Patient Mode of Arrival: Ambulatory Past Medical History PAST MEDICAL HISTORY: Anemia, Arthritis, Depression, DM, High Lipids, HTN Surgical History: Denies all surgeries DAIRY BACTERIOLOGIST History: No Pertinent DAIRY BACTERIOLOGIST History Family History Family History: No family hx of Heart nina Family History (Other): RA, ankylosing spondylitis Social History Smoker: Cigarettes, Less Than 1 Pack/Day Alcohol: Occasionally Drugs: Denies Drug Use Lives In: Home Constitutional: denies: chills, diaphoresis, fatigue, fever, malaise, sweats, weakness, others EENTM: reports: others (As stated in HPI) Respiratory: denies: cough, hemoptysis, orthopnea, SOB at rest, shortness of breath, SOB with excertion, stridor, wheezing, others Cardiovascular: denies: chest pain, dizzy spells, diaphoresis, Dyspnea on exertion, edema, irregular heart beat, left arm pain, lightheadedness, palpitations, PND, syncope, others Gastrointestinal: denies: abdomen distended, abdominal pain, blood streaked bowels, constipated, diarrhea, dysphagia, difficulty swallowing, hematemesis, melena, nausea, poor appetite, poor fluid intake, rectal bleeding, rectal pain, vomiting, others Genitourinary: denies: abnormal vagina bleeding, burning, dyspareunia, dysuria, flank pain, frequency, hematuria, incontinence, pain, , vagina discharge, urgency, others Neurological: denies: dizziness, fainting, headache, left sided numbness, left sided weakness, numbness, paresthesia, pre-existing deficit, right sided numbness, right sided weakness, seizure, speech problems, tingling, tremors, weakness, others Musculoskeletal: denies: back pain, gout, joint pain, joint swelling, muscle pain, muscle stiffness, neck pain, others Integumetry: denies: bruises, change in color, change in hair/nails, dryness, laceration, lesions, lumps, rash, wounds, others Allergic/Immunocompromised: denies: Difficulty Healing, Frequent Infections, Hives, Itching, others Hematologic/Lymphatic: denies: anemia, blood clots, easy bleeding, easy bruising, swollen glands, others Endocrine: denies: excessive hunger, excessive sweating, excessive thirst, excessive urination, flushing, intolerance to cold, intolerance to heat, u nexplained weight gain, unexplained weight loss, others Psychiatric: denies: anxiety, bipolar disorder, depression, hopeless, panic disorder, schizophrenia, sleepless, suicidal, others Physical Exam General Appearance: No Apparent Distress, Obese HEENT: PERRL/EOMI, Pharyngeal Erythema (Mild tonsillar swelling/erythema noted bilaterally without exudates. Uvula-normal), TMs Normal Neck: Full Range of Motion, Non-Tender, Normal Respiratory: Chest Non-Tender, Lungs Clear, No Accessory Muscle Use, No Respiratory Distress, Normal Breath Sounds Cardiovascular: No Murmur, No Gallop, Regular Rate/Rhythm Breast Exam: Deferred Gastrointestinal: NOT DONE Genitalia: Deferred Pelvic: Deferred Rectal: Deferred Extremities: Normal capillary refill, Normal range of motion Neurologic: Alert, No Motor Deficits, Normal Affect, Normal Mood, No Sensory Deficits Cerebellar Function: Normal Reflexes: Normal Skin: Dry, Normal Color, Warm Lymphatic: No Adenopathy Was a procedure done? Was a procedure done?: No Sedation Sedation?: No EENT DIFF Eye: N/A Sore Throat: Epiglottitis, Mononeucleosis, Peritonsillar Abscess, URI X-Ray, Labs, Meds, VS Vital Signs Date Time Temp Pulse Resp B/P (MAP) Pulse Ox O2 Delivery O2 Flow Rate FiO2 07/11/24 02:50 98.4 109 18 146/99 (115) 96 98.4 07/11/24 02:50 Room Air* 0 21 07/11/24 02:19 98.4 109 18 146/99 (115) 96 98.4 Rocephin 1 g IM ordered Solu-Medrol 125 mg IM ordered Patient tolerating p.o. intake well and in no distress prior to discharge Advised to drink plenty of fluids Smoking cessation discussed and advised Advised to follow up with PCP in 1-2 days Patient verbalized understanding and agreeable with current plan of care Advised to return to ER immediately if symptoms worsen Time of 1ST Reevaluation: 02:34 Reevaluation 1ST: N/A Patient Education/Counseling: Diagnosis, Treatment, Prognosis, Need For Follow Up Family Education/Counseling: No Family Present Departure 1 Departure Time of Disposition: 02:52 Impression: Primary Impression: Acute tonsillitis Qualified Codes: J03.90 - Acute tonsillitis, unspecified Disposition: HOME / SELF CARE / HOMELESS Condition: Stable e-Prescriptions Prednisone (Prednisone) 20 Mg Tab 20 MG PO BID for 5 Days, #10 TAB 0 Refills Prov: ALEXANDER TAPIA 07/11/24 Acetaminophen (Acetaminophen) 500 Mg Tab 500 MG PO Q4HPRN, #30 TAB 0 Refills Prov: ALEXANDER TAPIA 07/11/24 Amoxicillin & Pot Clavulanate (Amoxicillin/Potassium Cla) 875 Mg Tab 1 TAB PO BID for 7 Days, #14 TAB 0 Refills Prov: ALEXANDER TAPIA 07/11/24 Discharged With: Self Critical Care Note Critical Care Time?: No Stability Stability form required: No Heart Score Heart Score: Heart Score Response (Comments) Value History N/A 0 EKG N/A 0 Age N/A 0 Risk Factors N/A 0 Troponin N/A 0 Total 0 ALEXANDER TAPIA Jul 11, 2024 02:55
[2024-07-11] MEDS: methylPREDNISolone SOD SUCC 125 MG/2 ML VL IM ONE (03:01)
[2024-07-11] MEDS: cefTRIAXone SOD 1,000 MG VL IM ONE (03:01)
== END 2024-07-11 03:06 | disposition home or self-care (01) ==
LOC: ER 02:30
DX: J03.90 Acute tonsillitis, unspecified (principal); F17.210 Nicotine dependence, cigarettes, uncomplicated; M19.90 Unspecified osteoarthritis, unspecified site; F32.A Depression, unspecified; E11.9 Type 2 diabetes mellitus without complications; I10 Essential (primary) hypertension; E78.5 Hyperlipidemia, unspecified; F10.90 Alcohol use, unspecified, uncomplicated; Y90.9 Presence of alcohol in blood, level not specified; Z79.52 Long term (current) use of systemic steroids; Z79.899 Other long term (current) drug therapy; Z88.1 Allergy status to other antibiotic agents; Z86.2 Personal history of diseases of the blood and blood-forming organs and certain disorders involving the immune mechanism
CPT/HCPCS: 96372; 99284; J0696; J2919

== ENCOUNTER 2024-10-02 08:32 | Outpatient (CLI) | payer MEDICAID ==
[~2024-10-02 08:32] MED LIST changes: +ACET500T58 PO; +AMOX875T4 PO; +PRED20TA2 PO
[2024-10-02 08:59] LABS: Hematocrit 43.3 % (36.0-46.0); Hemoglobin 14.8 g/dL (12.2-16.2); Mean Corpuscular Hemoglobin 32.2 pg (28.0-32.0); Mean Corpuscular Volume 94.2 fL (80.0-100.0); Nucleated Red Blood Cells % 0.1 %
[2024-10-02 09:30] LABS: Alkaline Phosphatase 86 U/L (46-116); Anion Gap 7 (5-15); Calcium 9.3 mg/dL (8.7-10.4); Carbon Dioxide 25 mmol/L (20-31); Potassium 4.1 mmol/L (3.5-5.1); Sodium 140 mmol/L (136-145)
[2024-10-02 09:31] LABS: BUN/Creatinine Ratio 17.4 (10.0-20.0); Blood Urea Nitrogen 16 mg/dL (9-23); Total Protein 6.9 g/dL (5.7-8.2)
[2024-10-02 09:32] LABS: Albumin 4.5 g/dL (3.2-4.8); Cholesterol 159 mg/dL (< 200)
[2024-10-02 09:33] LABS: Bilirubin, Total 0.6 mg/dL (0.2-1.0)
[2024-10-02 09:39] LABS: Alanine Aminotransferase 46 U/L (7-40); Chloride 108 mmol/L (98-107); Glucose 161 mg/dL (74-106); HDL Cholesterol 36 mg/dL (40-59); Triglycerides 211 mg/dL (< 150)
[2024-10-02 09:55] LABS: Microalb/Creat Ratio, Urine < 3.0
== END 2024-10-02 17:00 | disposition home or self-care (01) ==
LOC: LAB 08:32
PROVIDERS: ATTEND Nurse Practitioner Family
DX: E78.5 Hyperlipidemia, unspecified (principal); E11.9 Type 2 diabetes mellitus without complications; Z00.01 Encounter for general adult medical examination with abnormal findings
CPT/HCPCS: 36415; 80053; 80061; 82043; 82306; 82570; 84443; 85025

== ENCOUNTER 2024-12-30 18:46 | Emergency (ER) | payer MEDICAID ==
[~2024-12-30] VITALS: Ht 154.9 cm; Wt 83.8 kg
[2024-12-30 18:51] VITALS: BP 162/101; RESP 16; TEMP 97.8; O2SAT 100
--- NOTE | 2024-12-30 19:08 | ECG ---
[facility] Test Date: 2024-12-30 Test Time: 18:58:55 Pat Name: DON WONG Department: ED Room: Gender: F Cardiac Surgeon: CHATO : 1985 Requested By: ROJELIO MORRIS Order Number: [id number] Reading MD: Laith Kumar Measurements Intervals [place] Rate: 95 P: 48 OH: 144 QRS: 64 QRSD: 99 T: 44 QT: 375 QTc: 472 Interpretive Statements Sinus rhythm Probable left atrial enlargement Baseline wander in lead(s) V2 Electronically Signed On 12-31-2024 14:45:49 PST by Laith Kumar Please click the below link to view image of tracing.
[2024-12-30 19:13] VITALS: PULSE 95
--- NOTE | 2024-12-30 19:13 | ED.PDOC ---
HPI Comments 39 y/o obese F presents with c/c of nonradiating, midsternal chest pain and nausea. Patient reports on sudden, unprovoked, and atraumatic onset of pain, earlier, today. She was evaluated and sent from urgent care. Patient reports history of off-and-on chest pain in the past. She also complains of insect bites to her lower-leg pain Past medical history: Mitral valve prolapse, DM, HTN Past surgical history: denies Social history: Cigarette and methamphetamine abuse HPI: Poor Historian. Patient is sent from urgent care for evaluation of chest pain x2 days with the associated nausea. Patient admits to use of methamphetamine most recently three days ago. REVIEW OF SYSTEMS: CONSTITUTIONAL: Denies acute: fever, diaphoresis, chills, generalized weakness. HEAD: Denies acute: headache, photophobia Eyes: Denies acute: Double vision, vision loss, eye pain, eye discharge. EARS: Denies acute: tinnitus, hearing loss, ear discharge, ear pain, THROAT: Denies acute: sore throat, swelling, difficulty swallowing , pain with swallowing, change in voice. NECK: Denies acute: neck pain, neck swelling, stiff neck. HEART: Denies acute : palpitations, LUNGS: Denies acute: SOB, wheezing, cough, hemoptysis ABDOMEN: Denies acute: abdominal pain, Nausea, Vomiting, diarrhea, melena , hematemesis, hematochezia SKIN: Denies acute: rash, redness, lesions, itchiness. EXTREMITIES: Denies acute: calf pain, numbness, tingling, weakness, denies pain in extremity. Denies acute: Low back pain. Neuro: Denies acute: focal neurological deficit, motor or sensory focal neurological deficit, tremors, seizure like activity, confusion, dizziness, change in mental status, loss of bowel or bladder function, cauda equina like symptoms. : Denies acute: dysuria, hematuria, flank pain, increase in urinary frequency. PSYCH: Denies acute: hallucination, suicidal ideation, homicidal ideation. FEMALE: Denies acute: abnormal vaginal bleeding, foul odor, unusual discharge. PHYSICAL EXAM: General: -----mild---acute distress, awake and alert. Head: normocephalic, atraumatic. No raccoon's eyes, no auguste sign. Neck: supple, trachea is midline, no swelling. Throat: Normal phonation. Eyes:, no erythema, no purulent discharge, no proptosis, no icterus. Heart: regular rate, regular rhythm, no significant murmur appreciated. Lungs: no apparent respiratory distress, Able to speak in full sentences. No wheezing, no rhonchi, no crackles. No stridors Clear to auscultation bilaterally. Abdomen: non tender to palpation, non distended, soft, no guarding, no rebound, + bowel sounds. Neuro: Awake, Alert, oriented to name, self, situation, follows commands GCS=15. Speech is normal. Skin: no petechia, no purpura, no cyanosis, non-pale, not jaundice. Lower extremities: --trace bilateral - Pitting edema no deformity, no focal swelling, no calf TTP. Makes eye contact. moves all four extremities. Face: no apparent facial droop. Ambulating in the ED independently. No nystagmus. No nuchal rigidity, Kernig's sign, Brudzinski's sign, no meningeal signs. ED COURSE: DISCLAIMER: This medical document was created using an electronic medical record system with voice recognition software and computerized dictation system. Although this document has been carefully reviewed, there might still be some phonetic and typographical errors. Occasional wrong-word or "sound-alike" substitutions may have occurred due to the inherent limitations of voice recognition software. These areas are purely typographical due to imperfections of the software programs and do not reflect any compromise in the patient's medical care. Please read the chart carefully and recognize, using context, where these substitutions have occurred. Chief Complaint: Insect Bite Time Seen by MD: 19:00 Primary Care Provider: Jason Reviewed Notes: Allergies Allergies: Coded Allergies: Ranitidine (Verified Allergy, Unknown, 05/31/13) Home Meds Active Scripts Prednisone (Prednisone) 20 Mg Tab, 20 MG PO BID for 5 Days, #10 TAB 0 Refills Prov:ALEXANDER TAPIA 07/11/24 Acetaminophen (Acetaminophen) 500 Mg Tab, 500 MG PO Q4HPRN, #30 TAB 0 Refills Prov:ALEXANDER TAPIA 07/11/24 Amoxicillin & Pot Clavulanate (Amoxicillin/Potassium Cla) 875 Mg Tab, 1 TAB PO BID for 7 Days, #14 TAB 0 Refills Prov:ALEXANDER TAPIA 07/11/24 Albuterol Sulfate (Albuterol Sulfate Hfa) 108 Mcg/Act Aer, 108 MCG IN TID, #90 AER Prov:GEORGIANA BUENROSTRO 02/05/23 Promethazine-Dm (Promethazine Dm 6.25-15 mg/5Ml) 1 Sharon Sharon, 5 ML PO TID, #180 ML Prov:GEORGIANA BUENROSTRO 02/05/23 Azithromycin (Azithromycin) 500 Mg Tab, 1 TAB PO DAILY, #5 TAB Prov:GEORGIANA BUENROSTRO 02/05/23 Hctz (Hydrochlorothiazide) 25 Mg Tab, 25 MG PO DAILY, #30 TAB Prov:BETITO MARTINEZ MD 12/07/21 Reported Medications [Denies Taking Meds] No Conflict Check 06/16/12 Mode of Arrival: Ambulatory Past Medical History PAST MEDICAL HISTORY: Anemia, Arthritis, Depression, DM, High Lipids, HTN Surgical History: Denies all surgeries [employer] [place] History: No Pertinent [employer] [place] History Family History Family History: No family hx of Heart nina Family History (Other): RA, ankylosing spondylitis Social History Smoker: Cigarettes, Less Than 1 Pack/Day Alcohol: Occasionally Drugs: Denies Drug Use Lives In: Home EKG EKG : Pulse Rate (adult): 95 Mcdonald: Normal Cardiac Rhythm: NSR Block: None Hypertrophy: None ST: Normal Was a procedure done? Was a procedure done?: No CP Differential Dx Differential Diagnosis: N/A Differential Diagnosis: Other (Ddx include but not limitied to gastritis, musculoskeletal pain, radiculopathy, atypical chest pain, dissection, aneurysm, ACS, unstable angina, hiatal hernia, GERD, anxiety, costochondritis, PE, pneumothroax, neoplasm, cardiac ischemia, drug abuse, anemia.) X-Ray, Labs, Meds, VS Vital Signs Date Time Temp Pulse Resp B/P (MAP) Pulse Ox O2 Delivery O2 Flow Rate FiO2 12/30/24 19:13 95 12/30/24 18:58 95 12/30/24 18:51 97.8 95 16 162/101 100 97.8 Lab Test 12/30/24 21:25 12/30/24 20:27 Range/Units Troponin I High Sensitivity < 3 L < 3 L </=34 ng/L White Blood Count 7.4 4.4-10.8 10^3/uL Red Blood Count 4.70 4.0-5.20 10^6/uL Hemoglobin 15.2 12.2-16.2 g/dL Hematocrit 43.9 36.0-46.0 % Mean Corpuscular Volume 93.5 80.0-100.0 fL Mean Corpuscular Hemoglobin 32.3 H 28.0-32.0 pg Mean Corpuscular Hemoglobin Concent 34.5 32.0-36.0 g/dL Red Cell Distribution Width 12.8 11.8-14.3 % Platelet Count 392 140-450 10^3/uL Mean Platelet Volume 6.8 L 6.9-10.8 fL Neutrophils (%) (Auto) 40.5 37.0-80.0 % Lymphocytes (%) (Auto) 42.4 10.0-50.0 % Monocytes (%) (Auto) 12.1 H 0.0-12.0 % Eosinophils (%) (Auto) 4.2 0.0-7.0 % Basophils (%) (Auto) 0.8 0.0-2.0 % Neutrophils # (Auto) 3.0 1.6-8.6 10 ^3/uL Lymphocytes # (Auto) 3.2 0.4-5.4 10 ^3/uL Monocytes # (Auto) 0.9 0-1.3 10 ^3/uL Eosinophils # (Auto) 0.3 0-0.8 10 ^3/uL Basophils # (Auto) 0.1 0-0.2 10 ^3/uL Nucleated Red Blood Cells 0.1 % Sodium Level 143 136-145 mmol/L Potassium Level 4.2 3.5-5.1 mmol/L Chloride Level 105 98-107 mmol/L Carbon Dioxide Level 27 20-31 mmol/L Anion Gap 11 5-15 Blood Urea Nitrogen 15 9-23 mg/dL Creatinine 0.95 0.550-1.02 mg/dL Glomerular Filtration Rate Calc 77 >90 mL/min BUN/Creatinine Ratio 15.8 10.0-20.0 Serum Glucose 109 H 74-106 mg/dL Calcium Level 9.3 8.7-10.4 mg/dL Total Bilirubin 0.7 0.2-1.0 mg/dL Aspartate Amino Transferase (AST) 21 13-40 U/L Alanine Aminotransferase (ALT) 27 7-40 U/L Alkaline Phosphatase 108 46-116 U/L Total Protein 7.3 5.7-8.2 g/dL Albumin 4.5 3.2-4.8 g/dL [facility] [id number] [place] [address] Ph: [phone] DIAGNOSTIC IMAGING Diagnostic Imaging Report : [id number] Signed PATIENT: DON WONG ACCT: [id number] UNIT: [id number] : 1985 LOC: ER ROOM / BED: / AGE / SEX: 39 / F ADM STATUS: REG ER SERVICE 48 ORDERING PHYSICIAN: ROJELIO MORRIS DO PROCEDURE(s): CXRP - CHEST PORTABLE REASON: cp ORDER NUMBER(s): [id number], ACCESSION NUMBER(s): [id number] EXAM: XY CHEST PORTABLE HISTORY: cp TECHNIQUE: 1 view of the chest COMPARISON: XY CHEST XRAY 1 VIEW on DOS: 02/05/23 FINDINGS/IMPRESSION: LUNGS: No pleural effusion, consolidation, or pneumothorax. MEDIASTINUM: Unremarkable. BONES: No acute osseous abnormality. OTHER: None. ATED BY: KYRA BARRIENTOS MD DICTATED DATE/TIME: 12/30/242022 SIGNED BY: KYRA BARRIENTOS MD SIGNED DATE/TIME: 12/30/242022 CC: Time of 1ST Reevaluation: 19:00 Reevaluation 1ST: Unchanged Patient Education/Counseling: Diagnosis, Treatment Family Education/Counseling: No Family Present Comments MDM: patient presented with the above HPI.---cardiac---workup was initiated. patient was found with the above mentioned diagnosis. the following medications were ordered: please refer to order lists of meds and tests obtained by myself Dr. Morris. Patient ED course and VS have been stabilized. Patient has been reassessed in the ED and remained in a stable condition. Pertinent incidental findings were discussed with the patient and/or family. Patient/family voices understanding and is agreeable with plan. Patient has been observed in the ED adequate length of time to insure improvement/stability. Escalation of care considered: Consideration of escalation to observation or admission Patient was ADMITTED to the medicine team for further evaluation and treatment of their presentation. However later I was notified that the patient left against medical advice. All the reports of any imaging studies that were ordered by myself were reviewed by myself. SEPSIS Sepsis Screen Date sepsis recognized/suspect: Dec 30, 2024 Time Sepsis recognized/suspect: 1850 Recent Procedure: No On Antibiotic Therapy: No Respiratory Rate >20: No Heart Rate >90: Yes Temp<36 C (96.8 F) or >38.3 C: No SBP <90 or MAP <65 mmHG: No New Acute Mental Status Change: No Is the patient on CPAP, BIPAP,: No Physician Orders Electrocardigram (12/30/24 19:06) Electrocardigram (12/30/24 20:06) Electrocardigram (12/30/24 22:06) Replenishment Analyst (12/30/24 ) Urinalysis (12/30/24 19:49) Drug Screen (12/30/24 19:49) Chest Portable (12/30/24 19:49) Vital Signs Date Time Temp Pulse Resp B/P (MAP) Pulse Ox O2 Delivery O2 Flow Rate FiO2 12/30/24 19:13 95 12/30/24 18:58 95 12/30/24 18:51 97.8 95 16 162/101 100 97.8 Laboratory Tests Test 12/30/24 20:27 White Blood Count 7.4 10^3/uL (4.4-10.8) Departure 1 Departure Time of Disposition: 00:00 Impression: Primary Impression: Chest pain Additional Impressions: Methamphetamine abuse Left against medical advice Disposition: ADMITTED INPATIENT Admit to: [facility] Condition: Guarded Additional Instructions: Discharged With: Self Critical Care Note Critical Care Time?: No Heart Score Heart Score: Heart Score Response (Comments) Value History Moderate Suspicious 1 EKG Normal 0 Age <45 0 Risk Factors >3 or Hx ASHD 2 Troponin Normal limit 0 Total 3 I personally scribed for ROJELIO MORRIS DO ([email or web address]) on 12/30/24 at 19:13. Electronically submitted by Marcos Ventura ([email or web address]). I personally scribed for ROJELIO MORRIS DO ([email or web address]) on 12/30/24 at 21:34. Electronically submitted by Marcos Ventura ([email or web address]). ROJELIO MORRIS DO Dec 30, 2024 19:13
--- NOTE | 2024-12-30 20:25 | DVH ---
EXAM: XY CHEST PORTABLE HISTORY: cp TECHNIQUE: 1 view of the chest COMPARISON: XY CHEST XRAY 1 VIEW on DOS: 02/05/23 FINDINGS/IMPRESSION: LUNGS: No pleural effusion, consolidation, or pneumothorax. MEDIASTINUM: Unremarkable. BONES: No acute osseous abnormality. OTHER: None.
[2024-12-30 20:37] LABS: Hematocrit 43.9 % (36.0-46.0); Hemoglobin 15.2 g/dL (12.2-16.2); Mean Corpuscular Hemoglobin 32.3 pg (28.0-32.0); Mean Corpuscular Volume 93.5 fL (80.0-100.0); Nucleated Red Blood Cells % 0.1 %
[2024-12-30 20:54] LABS: Alanine Aminotransferase 27 U/L (7-40); Albumin 4.5 g/dL (3.2-4.8); Alkaline Phosphatase 108 U/L (46-116); Anion Gap 11 (5-15); BUN/Creatinine Ratio 15.8 (10.0-20.0); Bilirubin, Total 0.7 mg/dL (0.2-1.0); Blood Urea Nitrogen 15 mg/dL (9-23); Calcium 9.3 mg/dL (8.7-10.4); Carbon Dioxide 27 mmol/L (20-31); Chloride 105 mmol/L (98-107); Potassium 4.2 mmol/L (3.5-5.1); Sodium 143 mmol/L (136-145); Total Protein 7.3 g/dL (5.7-8.2)
[2024-12-30 20:58] LABS: Glucose 109 mg/dL (74-106)
== END 2024-12-31 03:57 | disposition left against medical advice (07) ==
LOC: ER 18:46
DX: R07.89 Other chest pain (principal); F15.10 Other stimulant abuse, uncomplicated; E11.9 Type 2 diabetes mellitus without complications; I10 Essential (primary) hypertension; F17.210 Nicotine dependence, cigarettes, uncomplicated; Z79.899 Other long term (current) drug therapy
CPT/HCPCS: 36415; 71045; 80053; 84484; 85025; 93005